=== PATIENT | female | born 1990 | race African-American/Black ===

== ENCOUNTER 2022-09-02 12:47 | Inpatient (IN) ==
[2022-09-02] MEDS ORDERED: PROMETHAZINE 25 MG/1 ML VIAL IM ONE (13:05)
[2022-09-02] MEDS ORDERED: FAMOTIDINE 20 MG/2 ML VIAL IV ONE (13:05)
[2022-09-02] MEDS ORDERED: LACTATED RINGERS 1,000 ML IV ONE (13:05)
[2022-09-02] MEDS ORDERED: NALOXONE 0.4 MG/ML VIAL IV PRN (13:05)
[2022-09-02] MEDS ORDERED: CITRIC ACID/SODIUM CITRATE 30 ML UDCUP PO ONE (13:05)
[2022-09-02] MEDS ORDERED: LACTATED RINGERS 250 ML IV PRN (13:05)
[2022-09-02] MEDS ORDERED: diphenhydrAMINE 50 MG/1 ML VIAL IV PRN ×2 (13:05)
[2022-09-02] MEDS ORDERED: ONDANSETRON 4 MG/2 ML VIAL IV ONE (13:05)
[2022-09-02] MEDS ORDERED: hydrOXYzine HCL 25 MG/1 ML VIAL IM PRN (13:05)
[2022-09-02] MEDS ORDERED: ePHEDrine 50 MG/ML VIAL IV PRN (13:05)
[2022-09-02] MEDS ORDERED: LACTATED RINGERS 500 ML IV ONE (13:05)
[2022-09-02] MEDS ORDERED: TRANEXAMIC ACID 1,000 MG in SODIUM CHLORIDE 0.9% 100 ML IV PRN (13:07)
[2022-09-02] MEDS ORDERED: CARBOPROST TROMETHAMINE 250 MCG/ML AMP IM PRN (13:07)
[2022-09-02] MEDS ORDERED: miSOPROStoL 200 MCG TABLET RECTAL PRN (13:07)
[2022-09-02] MEDS ORDERED: OXYTOCIN/LR 20 UNIT/1,000 ML BAG IV ONE ×3 (13:07→17:57)
[2022-09-02] MEDS ORDERED: METHYLERGONOVINE 0.2 MG/1 ML AMP IM PRN (13:07)
[2022-09-02] MEDS ORDERED: TRANEXAMIC ACID 1,000 MG/10 ML VIAL ONE (13:12)
[2022-09-02] MEDS ORDERED: miSOPROStoL 200 MCG TABLET ONE (13:12)
[2022-09-02] MEDS ORDERED: CARBOPROST TROMETHAMINE 250 MCG/ML AMP IM ONE (13:13)
[2022-09-02] MEDS ORDERED: SODIUM CHLORIDE 0.9% 0 ML IV ONE (13:13)
[2022-09-02] MEDS ORDERED: METHYLERGONOVINE 0.2 MG/1 ML AMP ONE (13:13)
[2022-09-02] MEDS ORDERED: MEPERIDINE 25 MG/1 ML VIAL IV PRN (13:14)
[2022-09-02] MEDS: LACTATED RINGERS 1,000 ML IV SCH ×2 (13:16→14:05)
[2022-09-02 13:29] LABS: Basophils % 0.3 % (0.0-0.8); Eosinophils % 0.5 % (0.00-10.9); Hematocrit 33.6 VOL% (35.7-47.0); Hemoglobin 10.2 GM/DL (12.0-16.0); Immature Granulocytes % 3.7 %; Immature Granulocytes Absolute 0.21 #; Lymphocytes # 1.1 10*3/uL (1.4-4.0); Lymphocytes % 18.9 % (21.3-54.2); Mean Corpuscular HGB Conc 30.4 GM/DL (32-36); Mean Corpuscular Volume 75.8 FL (87-102); Monocytes # 0.4 10*3/uL (0.11-0.8); Monocytes % 6.3 % (1.7-12.7); NRBC # 0.02 10*3/uL; Neutrophils % 70.3 % (38.7-73.9); Platelet Count 163 T/CUMM (130-400); Red Blood Count 4.43 MC/CUMM (3.8-5.5); Red Cell Distribution Width 18.2 % (9.3-17.3); White Blood Count 5.7 T/CUMM (4-12)
[2022-09-02] MEDS ORDERED: LACTATED RINGERS 1,000 ML IV SCH ×2 (13:30)
[2022-09-02] MEDS ORDERED: OXYTOCIN/LR 20 UNIT/1,000 ML BAG IV SCH (13:30)
[2022-09-02] MEDS ORDERED: fentaNYL 2 MCG/ROPIV 0.2% EPID 100 ML EPIDURAL SCH (13:30)
[2022-09-02] MEDS ORDERED: ACETAMINOPHEN 325 MG TABLET PO PRN (17:57)
[2022-09-02] MEDS ORDERED: LANOLIN 50% CREAM 0.3 OZ TUBE TOP PRN (17:57)
[2022-09-02] MEDS ORDERED: BISACODYL 10 MG SUPP RECTAL PRN (17:57)
[2022-09-02] MEDS ORDERED: HYDROCORTISONE 2.5% RECTAL CREAM 30 GM TUBE TOP PRN (17:57)
[2022-09-02] MEDS ORDERED: oxyCODONE/ACETAMINOPHEN 5-325 MG TABLET PO PRN ×2 (17:57)
[2022-09-02] MEDS ORDERED: ONDANSETRON 4 MG/2 ML VIAL IV PRN (17:57)
[2022-09-02] MEDS ORDERED: MEASLES/MUMPS/RUBELLA VACCINE 0.5 ML VIAL SUBCUT ONE (17:57)
[2022-09-02] MEDS ORDERED: WITCH HAZEL PADS 100/JAR TOP PRN (17:57)
[2022-09-02] MEDS ORDERED: RHO(D) IMMUNE GLOBULIN 300 MCG SYRINGE IM ONE (17:57)
[2022-09-02] MEDS ORDERED: DIPH/TET/ACEL PERT BOOSTER VACCINE 0.5 ML VIAL IM ONE (17:57)
[2022-09-02 18:02] LABS: Cord Venous Blood HCO3 18.8 MMOL/L; Cord Venous Blood PCO2 48.7 MMHG; Cord Venous Blood PO2 24.8
[2022-09-02] MEDS: DOCUSATE SODIUM 100 MG CAPSULE PO SCH (21:23)
[2022-09-02] MEDS: BENZOCAINE 20%/MENTHOL 0.5% SPRAY 56 GM CAN TOP PRN (23:39)
[2022-09-03] MEDS: IBUPROFEN 800 MG TABLET PO PRN ×3 (01:36→17:30)
[2022-09-03 06:02] LABS: Basophils % 0.1 % (0.0-0.8); Eosinophils % 0.4 % (0.00-10.9); Hematocrit 28.9 VOL% (35.7-47.0); Hemoglobin 8.9 GM/DL (12.0-16.0); Immature Granulocytes % 1.9 %; Immature Granulocytes Absolute 0.14 #; Lymphocytes # 1.6 10*3/uL (1.4-4.0); Lymphocytes % 20.6 % (21.3-54.2); Mean Corpuscular HGB Conc 30.8 GM/DL (32-36); Mean Corpuscular Volume 75.3 FL (87-102); Mean Platelet Volume 11.9 FL (9.6-12.0); Monocytes # 0.4 10*3/uL (0.11-0.8); Monocytes % 4.7 % (1.7-12.7); Neutrophils % 72.3 % (38.7-73.9); Platelet Count 135 T/CUMM (130-400); Red Blood Count 3.84 MC/CUMM (3.8-5.5); White Blood Count 7.5 T/CUMM (4-12)
[2022-09-03 07:15] LABS: Target Cells Slight; Tear Drop Cells Slight
[2022-09-03 07:16] LABS: Platelet Estimate Decreased
[2022-09-03] MEDS: BENZOCAINE 20%/MENTHOL 0.5% SPRAY 56 GM CAN TOP PRN (09:58)
[2022-09-03] MEDS: ONDANSETRON 4 MG TABLET PO PRN ×2 (10:03→17:30)
[2022-09-03] MEDS: DOCUSATE SODIUM 100 MG CAPSULE PO SCH (10:03)
[2022-09-04] MEDS: IBUPROFEN 800 MG TABLET PO PRN (08:19)
[2022-09-04] MEDS: DOCUSATE SODIUM 100 MG CAPSULE PO SCH (08:23)
[2022-09-04] MEDS ORDERED: FERROUS SULFATE 325 MG TABLET PO SCH (09:00)
[2022-09-04] MEDS ORDERED: MULTIVITAMIN (PRENATAL) TABLET PO SCH (09:00)
[2022-09-04 12:40] VITALS: BP 125/71
== END 2022-09-04 15:35 | disposition home or self-care (01) | DRG 560 ==
LOC: N.LDOUT 12:47 → N.LD 12:48 → N.OB 21:45
PROVIDERS: ADMIT Obstetrics & Gynecology; ATTEND Obstetrics & Gynecology